=== PATIENT | male | born 1990 | race Caucasian/White ===

== ENCOUNTER 2024-04-21 11:22 | Emergency (ER) | payer OTHER ==
[~2024-04-21] VITALS: Ht 182.9 cm; Wt 100.0 kg
--- NOTE | 2024-04-21 11:28 | ECG ---
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
--- NOTE | 2024-04-21 12:03 | DVH ---
CHEST RADIOGRAPH Indication: CP Technique: Single frontal view of the chest was obtained Comparison: None FINDINGS: Lines and Tubes: None Lungs: No focal consolidation. Pleura: No effusion. No pneumothorax. Cardiomediastinal contours: Unremarkable Bones: No acute osseous abnormality. IMPRESSION: No acute cardiopulmonary disease.
[2024-04-21 12:09] LABS: Alkaline Phosphatase 81 U/L (46-116); Anion Gap 9 (5-15); Aspartate Aminotransferase 29 U/L (13-40); BUN/Creatinine Ratio 7.3 (10.0-20.0); Calcium 10.4 mg/dL (8.7-10.4); Carbon Dioxide 26 mmol/L (20-31); Chloride 103 mmol/L (98-107); Sodium 138 mmol/L (136-145); Total Protein 7.9 g/dL (5.7-8.2)
[2024-04-21 12:10] LABS: Alanine Aminotransferase 47 U/L (7-40); Albumin 4.9 g/dL (3.2-4.8); Blood Urea Nitrogen 8 mg/dL (9-23); Glucose 121 mg/dL (74-106); Potassium 3.4 mmol/L (3.5-5.1)
[2024-04-21 12:13] LABS: Hemoglobin 18.1 g/dL (13.5-17.5); Monocytes # (auto) 1.2 10 ^3/uL (0-1.3)
[2024-04-21 12:15] LABS: Basophils # (auto) 0.1 10 ^3/uL (0-0.2); Basophils % (auto) 0.6 % (0.0-2.0); Eosinophils # (auto) 0 10 ^3/uL (0-0.8); Eosinophils % (auto) 0.5 % (0.0-7.0); Lymphocytes # (auto) 1.1 10 ^3/uL (0.4-5.4); Mean Corpuscular Hemoglobin 30.8 pg (28.0-32.0); Mean Corpuscular Hgb Conc. 34.9 g/dL (32.0-36.0); Mean Corpuscular Volume 88.1 fL (80.0-100.0); Monocytes % (auto) 12.3 % (0.0-12.0); Neutrophils # (auto) 7.4 10 ^3/uL (1.6-8.6); Neutrophils % (auto) 75.6 % (37.0-80.0); Nucleated Red Blood Cells % 0.1 %; Platelet Count (auto) 264 10^3/uL (140-450); Red Cell Distribution Width 12.6 % (11.8-14.3); White Blood Cell 9.8 10^3/uL (4.4-10.8)
[2024-04-21 12:24] LABS: Bilirubin, Total 0.7 mg/dL (0.2-1.0)
[2024-04-21 13:00] LABS: Urine Bacteria None Seen /hpf (None Seen)
--- NOTE | 2024-04-21 13:17 | ED.PDOC ---
HPI Comments HPI: Poor Historian. 34-year-old male presents to emergency department for evaluation of one day history of generalized upper chest discomfort that is worse with deep inspiration. Patient had diarrhea brown in color all day yesterday but none today. Patient denies active sick contacts. Patient denies any abdominal pain nausea or vomiting. Denies use of drugs. Temp: 97.8F RR: 18 02 sat : 99% on room air HR: 110 BP: 147/101 PMH: DM, HTN, HLD PSH: denies Social history: denies tobacco use, denies ETOH use, denies drug use Medications: fenofibrate, metformin, jiardiance Allergies: denies REVIEW OF SYSTEMS: CONSTITUTIONAL: Denies acute: fever, chills, generalized weakness. HEAD: Denies acute: headache, photophobia Eyes: Denies acute: Double vision, vision loss, eye pain, eye discharge. EARS: Denies acute: tinnitus, hearing loss, ear discharge, ear pain, THROAT: Denies acute: sore throat, swelling, difficulty swallowing , pain with swallowing, change in voice. NECK: Denies acute: neck pain, neck swelling, stiff neck. HEART: Denies acute : palpitations, LUNGS: Denies acute: SOB, wheezing, cough, hemoptysis ABDOMEN: Denies acute: abdominal pain, Nausea, Vomiting, diarrhea, melena , hematemesis, hematochezia SKIN: Denies acute: rash, redness, lesions, itchiness. EXTREMITIES: Denies acute: calf pain, numbness, tingling, weakness, denies pain in extremity. Denies acute: Low back pain. Neuro: Denies acute: focal neurological deficit, motor or sensory focal neurological deficit, tremors, seizure like activity, confusion, dizziness, change in mental status, loss of bowel or bladder function, cauda equina like symptoms. : Denies acute: dysuria, hematuria, flank pain, increase in urinary frequency. PSYCH: Denies acute: hallucination, suicidal ideation, homicidal ideation. PHYSICAL EXAM: General: no acute distress, awake and alert. Head: normocephalic, atraumatic. Neck: supple, trachea is midline, no swelling. Throat: Normal phonation. Eyes:, no erythema, no purulent discharge, no proptosis, no icterus. Heart: regular rate, regular rhythm, no significant murmur appreciated. Lungs: no apparent respiratory distress, Able to speak in full sentences. No wheezing, no rhonchi, no crackles. No stridors Clear to auscultation bilaterally. Abdomen: non tender to palpation, non distended, soft, no guarding, no rebound, + bowel sounds. Neuro: Awake, Alert, oriented to name, self, situation, follows commands GCS=15. Speech is normal. Skin: no petechia, no purpura, no cyanosis, non-pale, not jaundice. Lower extremities: --no - Pitting edema no deformity, no focal swelling, no calf TTP. Makes eye contact. moves all four extremities. Face: no apparent facial droop. Ambulating in the ED independently. Ears: Normal appearing TM b/l, Chief Complaint: Chest Pain Time Seen by MD: 11:34 Primary Care Provider: OLY Farrar Notes: Nurses Notes, Medications, Allergies Allergies: Coded Allergies: NO KNOWN ALLERGIES (Unverified , 04/21/24) Information Source: Patient Mode of Arrival: Ambulatory Past Medical History PAST MEDICAL HISTORY: DM, High Lipids, HTN Surgical History: Denies all surgeries Family History Family History: Reviewed,noncontributory to illness Social History Smoker: Non-Smoker Alcohol: Denies ETOH Use Drugs: Denies Drug Use Lives In: Home Was a procedure done? Was a procedure done?: No X-Ray, Labs, Meds, VS Vital Signs Date Time Temp Pulse Resp B/P (MAP) Pulse Ox O2 Delivery O2 Flow Rate FiO2 04/21/24 20:53 105 131/91 (104) 04/21/24 20:53 108 131/91 04/21/24 19:35 97 151/102 04/21/24 19:30 97 151/102 04/21/24 19:27 97 151/102 (118) 96 04/21/24 18:55 99 14 98 Room Air* 0 21 04/21/24 18:50 99 141/103 04/21/24 18:34 99 141/103 04/21/24 18:04 105 150/104 04/21/24 17:51 105 20 150/104 (119) 98 04/21/24 16:51 110 17 147/94 (111) 97 04/21/24 16:51 147/94 04/21/24 16:51 147/94 (111) 04/21/24 16:30 136/101 04/21/24 16:29 113 20 136/101 (113) 98 04/21/24 15:28 109 04/21/24 15:28 98.8 109 18 149/110 (123) 98 98.8 04/21/24 14:23 115 04/21/24 12:22 109 04/21/24 11:26 100 04/21/24 11:25 97.8 110 18 147/101 (116) 99 Lab Test 04/21/24 15:30 04/21/24 14:26 04/21/24 13:01 04/21/24 12:48 Range/Units Influenza Type A Antigen Negative Negative Influenza Type B Antigen Negative Negative SARS-CoV-2 Antigen (Rapid) Negative NEGATIVE Magnesium Level 2.1 1.6-2.6 mg/dL Troponin I High Sensitivity 37 34 </=54 ng/L Urine Color Light-yellow Yellow Urine Clarity Clear Clear Urine pH 7.0 5.0-9.0 Urine Specific [place] 1.040 H 1.001-1.035 Urine Protein Negative Negative Urine Ketones 2+ H Negative Urine Blood Negative Negative /uL Urine Nitrite Negative Negative Urine Bilirubin Negative Negative Urine Urobilinogen Normal Negative mg/dL Urine Leukocyte Esterase Negative Negative /uL Urine RBC 2 0 - 3 /hpf Urine WBC <1 0 - 3 /hpf Urine Squamous Epithelial Cells None seen <5 /hpf Urine Bacteria None seen None Seen /hpf Urine Glucose 4+ H Normal mg/dL Urine Opiates Screen Neg NEGATIVE Urine Fentanyl Screen Neg NEGATIVE Urine Barbiturates Screen Neg NEGATIVE Urine Phencyclidine Screen Neg NEGATIVE Urine Amphetamines Screen Neg NEGATIVE Urine Benzodiazepines Screen Neg NEGATIVE Urine Cocaine Screen Neg NEGATIVE Urine Cannabinoids Screen Neg NEGATIVE Test 04/21/24 11:30 04/21/24 11:28 Range/Units POC Glucose 139 H 70-106 mg/dl White Blood Count 9.8 4.4-10.8 10^3/uL Red Blood Count 5.90 4.5-5.90 10^6/uL Hemoglobin 18.1 H 13.5-17.5 g/dL Hematocrit 52.0 41.0-53.0 % Mean Corpuscular Volume 88.1 80.0-100.0 fL Mean Corpuscular Hemoglobin 30.8 28.0-32.0 pg Mean Corpuscular Hemoglobin Concent 34.9 32.0-36.0 g/dL Red Cell Distribution Width 12.6 11.8-14.3 % Platelet Count 264 140-450 10^3/uL Mean Platelet Volume 8.1 6.9-10.8 fL Neutrophils (%) (Auto) 75.6 37.0-80.0 % Lymphocytes (%) (Auto) 11.0 10.0-50.0 % Monocytes (%) (Auto) 12.3 H 0.0-12.0 % Eosinophils (%) (Auto) 0.5 0.0-7.0 % Basophils (%) (Auto) 0.6 0.0-2.0 % Neutrophils # (Auto) 7.4 1.6-8.6 10 ^3/uL Lymphocytes # (Auto) 1.1 0.4-5.4 10 ^3/uL Monocytes # (Auto) 1.2 0-1.3 10 ^3/uL Eosinophils # (Auto) 0 0-0.8 10 ^3/uL Basophils # (Auto) 0.1 0-0.2 10 ^3/uL Nucleated Red Blood Cells 0.1 % D-Dimer, Quantitative < 0.19 0.0-0.49 mg/L FEU Sodium Level 138 136-145 mmol/L Potassium Level 3.4 L 3.5-5.1 mmol/L Chloride Level 103 98-107 mmol/L Carbon Dioxide Level 26 20-31 mmol/L Anion Gap 9 5-15 Blood Urea Nitrogen 8 L 9-23 mg/dL Creatinine 1.10 0.700-1.30 mg/dL Glomerular Filtration Rate Calc 90 >90 mL/min BUN/Creatinine Ratio 7.3 L 10.0-20.0 Serum Glucose 121 H 74-106 mg/dL Calcium Level 10.4 8.7-10.4 mg/dL Total Bilirubin 0.7 0.2-1.0 mg/dL Aspartate Amino Transferase (AST) 29 13-40 U/L Alanine Aminotransferase (ALT) 47 H 7-40 U/L Alkaline Phosphatase 81 46-116 U/L Troponin I High Sensitivity 28 </=54 ng/L Total Protein 7.9 5.7-8.2 g/dL Albumin 4.9 H 3.2-4.8 g/dL Current Medications Medications (Trade) Dose Ordered Sig/Raina Route Start Time Stop Time Status Last Admin Sodium Chloride 1,000 ml @ 1,000 mls/hr Q1H ONCE IV 04/21/24 15:15 04/21/24 16:14 DC 04/21/24 15:30 Nitroglycerin (Ntrostat Sublingual) 0.4 mg ONCE ONCE SL 04/21/24 16:30 04/21/24 16:31 DC 04/21/24 16:30 Labetalol HCl (Labetalol HCl) 5 mg ONCE ONCE IV 04/21/24 18:00 04/21/24 18:01 DC 04/21/24 18:04 Labetalol HCl (Labetalol HCl) 5 mg ONCE ONCE IV 04/21/24 18:45 04/21/24 18:46 DC 04/21/24 18:50 Labetalol HCl (Labetalol HCl) 10 mg ONCE ONCE IV 04/21/24 19:45 04/21/24 19:46 DC 04/21/24 19:35 [place] [id number] Ph: [phone] DIAGNOSTIC IMAGING Diagnostic Imaging Report : [id number] Signed PATIENT: YUKO HODGEACCT: [id number] UNIT: [id number] : 1990 LOC: ER ROOM / BED: / AGE / SEX: 34 / M ADM STATUS: REG ER SERVICE 1130 ORDERING PHYSICIAN: MARLON GOLDSTEIN DO PROCEDURE(s): CXRP - CHEST PORTABLE REASON: CP ORDER NUMBER(s): [id number], ACCESSION NUMBER(s): [id number] CHEST RADIOGRAPH Indication: CP Technique: Single frontal view of the chest was obtained Comparison: None FINDINGS: Lines and Tubes: None Lungs: No focal consolidation. Pleura: No effusion. No pneumothorax. Cardiomediastinal contours: Unremarkable Bones: No acute osseous abnormality. IMPRESSION: No acute cardiopulmonary disease. ATED BY: QUIQUE STARKS MD DICTATED DATE/TIME: 04/21/24 1200 SIGNED BY: QUIQUE STARKS MD SIGNED DATE/TIME: 04/21/24 1200 CC: Patient Education/Counseling: Diagnosis, Treatment Family Education/Counseling: No Family Present Additional Information Patient presented with the above HPI.--chest pain---workup was initiated. patient was found with the above mentioned diagnosis. the following medications were ordered: none the following tests were ordered: influenza A and B, COVID test, chest x-ray, drug screen,D-dimer, EKGx3, troponinx3, UA, CBC, CMP Patient ED course and VS have been stabilized. Patient has been reassessed in the ED and remained in a stable condition. Patient has been observed in the ED adequate length of time to insure improvement/stability. Escalation of care considered: Consideration of escalation to observation or admission. patient was admitted to the medicine team for further evaluation and treatment of their presentation. All the reports of any imaging studies that were ordered by myself were reviewed by myself. Departure 1 Departure Time of Disposition: 19:50 Impression: Primary Impression: Chest pain Additional Impression: Hypertension Disposition: HOME / SELF CARE / HOMELESS Admit to: Tele Condition: Other Additional Instructions: Additional discharge instructions: You MUST follow-up with your primary care/family doctor in 1 to 2 days. If you are unable to see your primary care/family doctor, please return to our emergency room for re-assessment and re-evaluation in 1 to 2 days. Return to the emergency room here in our facility or to the nearest ER ITA if your symptoms change or worsen. CONSULTATIONS: you MUST Follow-up for consultation as soon as possible with: -cardiology in 1-2 days. Please call for appointment You MUST call the consultants office yourself to make an appointment. You may need to arrange that through your insurance and/or your primary/family doctor. If you are unable to see the applications consultant in 1 to 2 days, you must return to our emergency room (or any other ER of your choice) for re-assessment and re- evaluation. Adequate fluid hydration. Salt restrictions. Monitor blood pressure at home at least 3 times a day. Discharged With: Self Critical Care Note Critical Care Time?: No Heart Score Heart Score: Heart Score Response (Comments) Value History Slightly Suspicious 0 EKG Normal 0 Age <45 0 Risk Factors No known risk factors 0 Troponin Normal limit 0 Total 0 I personally scribed for MARLON GOLDSTEIN DO ([email or web address]) on 04/21/24 at 13:17. Electronically submitted by Marie Luu ([facility]). I personally scribed for MARLON GOLDSTEIN DO ([facility]) on 04/21/24 at 14:30. Electronically [facility] by [facility] Luu ([facility] I personally scribed for MARLON GOLDSTEIN DO ([facility]) on 04/21/24 at 14:33. Electronically submitted by Marie Luu ([facility]). MARLON GOLDSTEIN DO Apr 21, 2024 13:17
[2024-04-21 13:37] LABS: Urine Blood Negative /uL (Negative); Urine Clarity Clear (Clear); Urine Color Light-Yellow (Yellow); Urine Protein, UAD Negative (Negative); Urine Urobilinogen Normal (Negative); Urine WBC <1 /hpf (0 - 3)
[2024-04-21 14:09] LABS: Amphetamine Screen, Urine Neg (NEGATIVE); Barbiturate Scree,Urine Neg (NEGATIVE); Benzodiazephine Screen, Urine Neg (NEGATIVE); Cannabinoid Screen, Urine Neg (NEGATIVE); Cocaine Screen, Urine Neg (NEGATIVE); Opiate Scree,Urine Neg (NEGATIVE); Phencyclidine Screen, Urine Neg (NEGATIVE)
--- NOTE | 2024-04-21 14:33 | ECG ---
[facility] Test Date: 2024-04-21 Test Time: 14:23:18 Pat Name: YUKO HODGE Department: ED Room: Gender: M Subacute Nurse: AYDEN : 1990 Requested By: MARLON GOLDSTEIN Order Number: [id number] Reading MD: Anish Lane Measurements Intervals [place] Rate: 115 P: 64 SC: 173 QRS: 12 QRSD: 83 T: 64 QT: 302 QTc: 418 Interpretive Statements Sinus tachycardia RSR' in V1 or V2, probably normal variant Electronically Signed On 04-28-2024 9:46:[address] Please click the below link to view image of tracing.
[2024-04-21 15:28] VITALS: TEMP 98.8
[2024-04-21] MEDS: SODIUM CHLORIDE 0.9% 1,000 ML IV ONE (15:30)
[2024-04-21 16:16] LABS: COVID19 ANTIGEN SOFIA FIA NEGATIVE (NEGATIVE); Rapid Influenza A Negative (Negative); Rapid Influenza B Negative (Negative)
[2024-04-21] MEDS: NITROGLYCERIN 0.4 MG SL TAB SL ONE (16:30)
[2024-04-21] MEDS ORDERED: HYDROcodone-ACET 5/325MG TAB PO ONE (17:45)
[2024-04-21] MEDS: LABETALOL HCL 20 MG/4 ML VL IV ONE ×3 (18:04→19:35)
[2024-04-21 18:55] VITALS: PULSE 99; RESP 14; O2SAT 98
--- NOTE | 2024-04-21 18:56 | ECG ---
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
[2024-04-21 19:27] VITALS: O2SAT 96
[2024-04-21 20:53] VITALS: BP 131/91; PULSE 105
--- NOTE | 2024-04-26 09:41 | ECG ---
[facility] Test Date: 2024-04-21 Test Time: 14:22:34 Pat Name: YUKO HODGE Department: ED Room: Gender: M General Assistant: AYDEN : 1990 Requested By: MARLON GOLDSTEIN Order Number: [id number] Reading MD: Anish Lane Measurements Intervals [place] Rate: 119 P: 70 DC: 179 QRS: 28 QRSD: 77 T: 62 QT: 289 QTc: 407 Interpretive Statements Sinus tachycardia Probable left atrial enlargement RSR' in V1 or V2, probably normal variant Artifact in lead(s) I,II,III,aVR,aVL,aVF,V3,V4,V5,V6 Electronically Signed On 04-28-2024 9:46:[address] Please click the below link to view image of tracing.
== END 2024-04-21 21:37 | disposition home or self-care (01) ==
LOC: ER 11:22
DX: R07.89 Other chest pain (principal); I10 Essential (primary) hypertension; E11.9 Type 2 diabetes mellitus without complications; E78.5 Hyperlipidemia, unspecified; Z20.822 Contact with and (suspected) exposure to COVID-19
CPT/HCPCS: 36415; 71045; 80053; 80307; 81001; 82962; 83735; 84484; 85025; 85379; 87426; 87804; 93005; 96361; 96374; 96376; 99285; J7030; 96365; 96366